=== PATIENT | male | born 2000 | race Hispanic/Latino ===

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

== ENCOUNTER 2022-05-12 18:09 | Emergency (ER) | payer OTHER ==
[2022-05-12] MEDS ORDERED: Methocarbamol 1 GM/10 ML VIAL IM SCH (19:45)
[2022-05-12] MEDS ORDERED: Ketorolac Tromethamine 30 MG/ML VIAL ONE (19:55)
== END 2022-05-12 20:27 | disposition home or self-care (01) ==
LOC: ERS 18:09
DX: M65.4 Radial styloid tenosynovitis [de Quervain] (principal)
CPT/HCPCS: 96372; 99283; J1885; J2800

== ENCOUNTER 2022-09-17 20:03 | Emergency (ER) | payer SELFPAY ==
[~2022-09-17 20:03] MED LIST: Iopamidol 370 76% 100 ML VIAL ONE
== END 2022-09-18 00:32 | disposition home or self-care (01) ==
LOC: ERS 20:03
DX: L03.316 Cellulitis of umbilicus (principal)
CPT/HCPCS: 74177; Q9967

== ENCOUNTER 2025-01-18 19:20 | Emergency (ER) | payer SELFPAY ==
[2025-01-18] MEDS ORDERED: Dexamethasone 10 MG/ML VIAL ONE (20:19)
== END 2025-01-18 20:39 | disposition home or self-care (01) ==
LOC: ERS 19:20
DX: H83.03 Labyrinthitis, bilateral (principal); J32.9 Chronic sinusitis, unspecified; R29.700 NIHSS score 0
CPT/HCPCS: 96372; 99283; J1100